=== PATIENT | female | born 1950 | race Caucasian/White ===

== ENCOUNTER 2020-03-07 13:49 | Emergency (ER) | payer OTHER ==
[~2020-03-07] VITALS: Ht 167.6 cm; Wt 79.4 kg
[2020-03-07 14:21] VITALS: Ht 167.6 cm; Wt 79.4 kg
[2020-03-07 16:20] VITALS: BP 113/76
== END 2020-03-07 16:20 | disposition home or self-care (01) ==
LOC: ED 13:49
DX: S80.11XA Contusion of right lower leg, initial encounter (principal); W01.0XXA Fall on same level from slipping, tripping and stumbling without subsequent striking against object, initial encounter; Y93.89 Activity, other specified; Y92.89 Other specified places as the place of occurrence of the external cause; Y99.8 Other external cause status